=== PATIENT | male | born 1955 | race Caucasian/White ===

== ENCOUNTER 2020-12-03 10:37 | Emergency (ER) | payer OTHER, MEDICARE ==
[~2020-12-03] VITALS: Ht 172.7 cm; Wt 90.7 kg
[2020-12-03] MEDS ORDERED: ALBU2.5V5 INH (11:12)
[2020-12-03] MEDS ORDERED: LOSA25 PO (11:12)
[2020-12-03] MEDS ORDERED: Cyclobenzaprine5 MG PO (12:24)
[2020-12-03] MEDS ORDERED: IBUP400 PO (12:24)
== END 2020-12-03 12:50 | disposition home or self-care (01) ==
LOC: ER 10:37
DX: M54.5 Low back pain (principal); J44.9 Chronic obstructive pulmonary disease, unspecified
CPT/HCPCS: 72100; 96372; 99283-25; J1885